=== PATIENT | female | born 1970 | race Caucasian/White ===

== ENCOUNTER 2024-12-29 06:38 | Outpatient (REF) | payer OTHER, SELFPAY ==
--- NOTE | ~2024-12-29 | US_ITS ---
EXAMINATION: US PELVIS CLINICAL INFORMATION: Pelvic and perineal pain. COMPARISON: None available. TECHNIQUE: Ultrasound of the pelvis is performed using both transabdominal and transvaginal transducers along with Doppler. Transvaginal imaging is performed due to inadequate visualization transabdominally. FINDINGS: Uterus: The uterus is anteverted and measures 7 x 4 x 5 cm. Volume is 77 cc. The double wall endometrial thickness is 3 mm. The uterus is smooth in contour and has normal myometrial echogenicity. No visible fibroid. Adnexa: The right ovary is not identified. The left ovary is identified on the transabdominal approach.. There is no pelvic ascites or fluid collection. Left ovary measures 2 x 2 x 2 cm. Volume is 5 cc US/US pelvic and transvaginal IMPRESSION: Right ovary is not identified. Normal pelvic ultrasound. Electronically signed by: Anjel Meadows MD 12/29/2024 09:53 AM [facility]
== END 2024-12-29 06:39 | disposition home or self-care (01) ==
LOC: HO.UMASIMG 06:38
PROVIDERS: Visit Provider Family Medicine
DX: R10.2 Pelvic and perineal pain (principal); R63.5 Abnormal weight gain
CPT/HCPCS: 76830; 76856

== ENCOUNTER → 2024-12-29 08:30 | Outpatient (BNV) | payer OTHER, SELFPAY | PROVIDERS: Visit Provider Radiology Diagnostic Radiology | DX: R10.2 Pelvic and perineal pain (principal) | CPT/HCPCS: 76830; 76856 ==